=== PATIENT | female | born 1940 | race Caucasian/White ===

== ENCOUNTER 2018-07-01 10:18 | Day surgery (SDC) | payer MEDICARE ==
[~2018-07-01] VITALS: Ht 160 cm; Wt 77.3 kg
[2018-07-01] VITALS (13 sets, daily range): BP systolic 110–146; BP diastolic 58–84
[2018-07-01] MEDS ORDERED: nitroGLYCERIN 0.4mg SUBLingual tab SL PRN (11:00)
[2018-07-01] MEDS ORDERED: normal saline 1000ml 1,000 ML IV SCH ×2 (11:00→13:45)
[2018-07-01] MEDS ORDERED: LORazepam 0.5 MG tablet PO PRN (11:00)
[2018-07-01] MEDS ORDERED: diphenhydrAMINE 25mg capsule PO PRN (11:00)
[2018-07-01] MEDS ORDERED: TIZA2TAB4 PO (11:12)
[2018-07-01] MEDS ORDERED: MECL12.584 PO (11:12)
[2018-07-01] MEDS ORDERED: AMLO10TA PO (11:12)
[2018-07-01] MEDS ORDERED: HYDR-3972 PO (11:12)
[2018-07-01] MEDS ORDERED: LOVA20TA2 PO (11:12)
[2018-07-01] MEDS ORDERED: TEMA15CA5 PO (11:12)
[2018-07-01] MEDS ORDERED: GABA-530 PO (11:12)
[2018-07-01] MEDS ORDERED: SYN0.088T PO (11:12)
[2018-07-01] MEDS ORDERED: LISI1TAB11 PO (11:12)
[2018-07-01] MEDS ORDERED: fentaNYL/PF 50MCG/1 ML 2ML syringe ONE (11:51)
[2018-07-01] MEDS ORDERED: midazolam 2 mg/2 ml injection ONE ×2 (11:51→12:54)
[2018-07-01] MEDS ORDERED: LIDOcaine 1% (10mg/ml)w/preservative injection 20ml MDV ONE (11:52)
[2018-07-01] MEDS ORDERED: iohexol 350MG/ML 100ml bottle IV ONE (11:52)
[2018-07-01] MEDS ORDERED: iohexol 350 MG/ML 50ML vial IV ONE (11:52)
[2018-07-01] MEDS ORDERED: ondansetron/PF 4mg/2ml inj IV PRN (13:45)
[2018-07-01] MEDS ORDERED: HYDROcodone/acetaminophen 5mg/325mg tablet PO PRN (13:45)
[2018-07-01] MEDS ORDERED: proCHLORperazine 10 MG/2 ml inj IV PRN (13:45)
[2018-07-01] MEDS ORDERED: OXAZEpam 15mg capsule PO PRN (13:45)
[2018-07-01] MEDS ORDERED: HYDROcodone/acetaminophen 10/325mg tab PO PRN (13:45)
--- NOTE | 2018-07-01 16:44 | NUR ---
Dr. Salinas called, stated to order chest ct with no contrast for abnormal chest xray with possible hilar mass. Telephone order verified, CT paged and notified.
--- NOTE | 2018-07-01 17:29 | NUR ---
Patient went to CT and back, patient vitals stable, cath site soft, nontender, same amount of oozing on dressing, still laying flat post cath. Patient eating a sandwich, pain is much better after norco and serax
== END 2018-07-01 19:00 | disposition home or self-care (01) ==
LOC: SSTAY O 10:18
PROVIDERS: ATTEND Internal Medicine Cardiovascular Disease
DX: I25.10 Atherosclerotic heart disease of native coronary artery without angina pectoris (principal); R91.1 Solitary pulmonary nodule; I10 Essential (primary) hypertension; E78.5 Hyperlipidemia, unspecified; K44.9 Diaphragmatic hernia without obstruction or gangrene; E04.1 Nontoxic single thyroid nodule; M06.9 Rheumatoid arthritis, unspecified; E03.9 Hypothyroidism, unspecified; Z79.891 Long term (current) use of opiate analgesic; Z88.6 Allergy status to analgesic agent; Z86.73 Personal history of transient ischemic attack (TIA), and cerebral infarction without residual deficits; Z87.891 Personal history of nicotine dependence; Z99.81 Dependence on supplemental oxygen; Z90.49 Acquired absence of other specified parts of digestive tract; Z98.41 Cataract extraction status, right eye; Z98.42 Cataract extraction status, left eye; Z72.89 Other problems related to lifestyle; Z90.710 Acquired absence of both cervix and uterus; Z85.828 Personal history of other malignant neoplasm of skin; Z79.899 Other long term (current) drug therapy; Z98.890 Other specified postprocedural states; Z80.8 Family history of malignant neoplasm of other organs or systems; Z80.3 Family history of malignant neoplasm of breast; Z83.2 Family history of diseases of the blood and blood-forming organs and certain disorders involving the immune mechanism; Z84.81 Family history of carrier of genetic disease
CPT/HCPCS: 71250; 93458; 99152; 99153; A6257; C1760; J1644; J2001; J2250; J3010; J7030; Q0163; Q9967; A4620; C1769